=== PATIENT | male | born 1975 | race American Indian/Alaskan Native ===

== ENCOUNTER 2020-06-26 09:08 | Emergency (ER) | payer SELFPAY ==
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
[2020-06-26 10:08] LABS: Bilirubin,Urine NEG (Negative); Blood,Urine NEG (Negative); Color,Urine Yellow (Yellow); Mucus,Urine FEW /HPF
[2020-06-26 10:14] LABS: Basophils # (Auto) 0.1 K/mm3 (0.0-0.1); Basophils % (Auto) 0.9 % (0.0-1.8); Eosinophils # (Auto) 0.1 K/mm3 (0.0-0.4); Eosinophils % (Auto) 0.8 % (0.0-4.3); Lymphocytes # (Auto) 2.5 K/mm3 (1.2-5.4); Lymphocytes % (Auto) 28.8 % (13.4-35.0); Mean Corpuscular HGB Conc 36 % (32-34); Mean Corpuscular Volume 93 fl (84-94); Monocytes # (Auto) 1.1 K/mm3 (0.0-0.8); Platelet Count 209 K/mm3 (140-440); Red Blood Count 4.47 M/mm3 (3.65-5.03); Red Cell Distribution Width 14.2 % (13.2-15.2)
[2020-06-26 10:16] LABS: Hematocrit 41.7 % (35.5-45.6)
[2020-06-26 10:31] LABS: BUN/Creatinine Ratio 26; Blood Urea Nitrogen 26 mg/dL (9-20); Calcium 8.6 mg/dL (8.4-10.2); Hemolysis Index 5
[2020-06-26 10:37] LABS: Amphetamine Screen,Urine PRESUMPTIVE POSITIVE; Benzodiazepines Screen,Urine PRESUMPTIVE NEGATIVE; Cannabinoid Screen,Urine PRESUMPTIVE NEGATIVE; Cocaine Screen,Urine PRESUMPTIVE NEGATIVE; Methadone Screen,Urine PRESUMPTIVE NEGATIVE; Opiate Screen,Urine PRESUMPTIVE NEGATIVE
[2020-06-26] MEDS ORDERED: ZIPRASIDONE MESYLATE 20 MG VIAL IM ONE (13:58)
[2020-06-26] MEDS ORDERED: WATER FOR INJ Sterile (PF) 10 ML ONE (14:13)
--- NOTE | 2020-06-27 10:50 | Consultation ---
History of Present Illness - Reason for Consult Consult date: 06/27/20 Reason for consult: psychosis - History of Present Psychiatric Illness Vianney Griffith is a 45y/o male patient who presented to the ER for psychosis. During my interview with the patient today he is quite paranoid and suspicious. He is looking around as he speaks. He is having flight of ideas and delusional. The patient says "I need a safe place to be from outside harm and other people around me." He says "but really I'm being used and it's a set up." He then says "I need to speak to the investigators." He says "I'm being setup to look like a bad person." The patient then starts talking about the economy. He says "everything that is happening is affecting the economy." He says "but I'm not a threat to the economy." He denies hallucinations, stating "this is real. I don't have hallucinations. All this is real." He denies SI/HI or every having any attempt. The patient states he uses "meth."' He says "but that has nothing to do with it." He says he has a history of "bipolar" and has had ""two past psych admits." The patient denies any medications at this time. PAST PSYCHIATRIC HISTORY Diagnoses: Bipolar Suicide attempts or Self-harm behavior: Denies Prior psychiatric hospitalizations: twice Substance Abuse history: Meth Previous psychiatric medications tried: unable to recall Outpatient treatment: Denies PAST MEDICAL HISTORY: None reported Family Psychiatric History: None reported or documented SOCIAL HISTORY Marital Status: Single Living Arrangements: with friends Employment Status: Disabled Access to guns/weapons: None reported Education: High school History of Abuse: None reported Legal History: None reported REVIEW OF SYSTEMS Constitutional: Negative for weight loss ENT: Negative for stridor Respiratory: Negative for cough or hemoptysis All other systems reviewed and are negative MENTAL STATUS EXAMINATION General Appearance and Behavior: Age appropriate, good hygiene, wearing appropriate clothes, good eye contact Cooperation: Participating/engaged, but Guarded Psychomotor Behavior: Psychomotor normal Mood: "not good" Affect and affective range: Congruent with stated mood Thought Process: illogical, flight of ideas Thought Content: delusions, paranoia Speech: Normal rate, volume and rhythm, herperverbal Intellectual Functioning: Average Suicidal Ideation: Denies Homicidal Ideation: Denies Impulse Control: Impaired Insight and Judgment: Limited insight and judgment Memory: Normal Attention: Normal Orientation: Alert, oriented Assessment and Plan (1)Methamphetamine Use Disorder Current Visit: Yes Status: Acute (2) Substance Induced Mood Disorder Current Visit: Yes Status: Acute (3) Bipolar Disorder Current Visit: Yes Status: Acute Treatment Plan Start Depakote DR 125mg po BID Start Risperidone 0.25mg po BID Start Trazodone 50mg po qhs Start Vistaril 25mg po BID Risks, benefits and alternatives of medications discussed with the patient, ques tions answered and consent obtained from patient. PSYCHOTHERAPY: Supportive psychotherapy provided MEDICAL: Per primary team DELIRIUM PRECAUTIONS: Please re-orient patient frequently, keep lights on during the day, and minimize benzodiazepines and opiates as these medications could worsen patient's confusion. SAW STRAIGHTENER: Defer to primary DISPOSITION: Recommend acute inpatient psychiatric hospitalization at this time LEGAL STATUS: 1013 FOLLOW-UP: Will follow Thank you for the consult. Please contact with any questions and/or concerns. Medications and Allergies Allergies Allergy/AdvReac Type Severity Reaction Status Date / Time No Known Allergies Allergy Unverified 10/30/15 10:11 Mental Status Exam - Vital signs Last Vital Signs Temp 98.0 F 06/27/20 08:26 Pulse 80 06/27/20 08:26 Resp 20 06/27/20 08:26 BP 135/78 06/27/20 08:26 Pulse Ox 96 06/27/20 08:26 Results Result Diagrams: 06/26/20 09:56 06/26/20 09:56 All other labs normal.
[2020-06-27] MEDS: hydrOXYzine PAMOATE 25 MG CAP PO SCH ×2 (11:59→21:57)
[2020-06-27] MEDS: risperiDONE 0.25 MG TAB PO SCH ×2 (11:59→21:57)
[2020-06-27] MEDS: DIVALPROEX DR 125 MG TAB PO SCH ×2 (11:59→21:57)
[2020-06-27] MEDS: traZODone 50 MG TAB PO SCH (21:57)
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
[2020-06-28] MEDS: risperiDONE 0.25 MG TAB PO SCH ×2 (12:40→22:41)
[2020-06-28] MEDS: hydrOXYzine PAMOATE 25 MG CAP PO SCH ×2 (12:40→22:41)
[2020-06-28] MEDS: DIVALPROEX DR 125 MG TAB PO SCH ×2 (12:40→22:42)
[2020-06-28] MEDS: traZODone 50 MG TAB PO SCH (22:42)
--- NOTE | 2020-06-29 10:31 | Progress Note ---
Subjective - Reason for Consult Consult date: 06/29/20 Reason for consult: paranoid - Chief Complaint Chief complaint: During my interview with the patient today, he is talkative. He is a/o x 3. The patient says he "doesn't feel safe." He says "I'm going to be hunted down like an animal out there." When asked about SI/HI, the patient states, "no, I'm not a threat to myself or any one, it's those people in the [place] [employer] who are going to hurt me." He says, "I'm just not safe from them and no one here seems to listen. I feel scared." The patient denies hallucinations. REVIEW OF SYSTEMS Constitutional: Negative for weight loss ENT: Negative for stridor Respiratory: Negative for cough or hemoptysis All other systems reviewed and are negative MENTAL STATUS EXAMINATION General Appearance and Behavior: Age appropriate, good hygiene, wearing appropriate clothes, good eye contact Cooperation: Participating/engaged, but Guarded Psychomotor Behavior: Psychomotor normal Mood: "scared" Affect and affective range: Congruent with stated mood Thought Process: illogical, flight of ideas Thought Content: delusions, paranoia Speech: Normal rate, volume and rhythm, hyperverbal Suicidal Ideation: Denies Homicidal Ideation: Denies Hallucinations: Denies Delusions: Yes, paranoia Impulse Control: Impaired Insight and Judgment: Limited insight and judgment Memory: Normal Attention: Limited Orientation: Alert, oriented Assessment and Plan (1)Methamphetamine Use Disorder Current Visit: Yes Status: Acute (2) Substance Induced Mood Disorder Current Visit: Yes Status: Acute (3) Bipolar Disorder Current Visit: Yes Status: Acute Treatment Plan Increased Depakote DR 250mg po BID Increased Risperidone 0.5mg po BID Risks, benefits and alternatives of medications discussed with the patient, questions answered and consent obtained from patient. PSYCHOTHERAPY: Supportive psychotherapy provided MEDICAL: Per primary team DELIRIUM PRECAUTIONS: Please re-orient patient frequently, keep lights on during the day, and minimize benzodiazepines and opiates as these medications could worsen patient's confusion. PURCHASING ADMINISTRATOR: Defer to primary DISPOSITION: Recommend acute inpatient psychiatric hospitalization at this time LEGAL STATUS: 1013 FOLLOW-UP: Will follow Thank you for the consult. Please contact with any questions and/or concerns. Mental Status Exam - Vital signs Last Vital Signs Temp 97.7 F 06/29/20 10:11 Pulse 78 06/29/20 10:11 Resp 19 06/29/20 10:11 BP 111/67 06/29/20 10:11 Pulse Ox 99 06/29/20 10:11
[2020-06-29] MEDS: DIVALPROEX DR 125 MG TAB PO SCH (12:57)
[2020-06-29] MEDS: hydrOXYzine PAMOATE 25 MG CAP PO SCH ×2 (12:58→22:35)
[2020-06-29] MEDS: risperiDONE 0.25 MG TAB PO SCH ×2 (12:58→22:35)
[2020-06-29] MEDS: traZODone 50 MG TAB PO SCH (22:35)
[2020-06-29] MEDS: DIVALPROEX DR 250 MG TAB PO SCH (22:35)
[2020-06-30 09:16] VITALS: BP 112/73
[2020-06-30] MEDS: DIVALPROEX DR 250 MG TAB PO SCH (10:21)
[2020-06-30] MEDS: hydrOXYzine PAMOATE 25 MG CAP PO SCH (10:21)
[2020-06-30] MEDS: risperiDONE 0.25 MG TAB PO SCH (10:21)
--- NOTE | 2020-06-30 10:24 | Progress Note ---
Subjective - Reason for Consult Consult date: 06/30/20 Reason for consult: paranoia - Chief Complaint Chief complaint: During my interview with the patient today, the patient is much more calm. He is a/o x 3. He is lucid. The patient says he feels much better and states [facility] feels [facility] The patient denies SI/HI or hallucinations of any kind. He also denies feeling paranoid or any fear of endangerment. The patient says he can have his mom to pick him up. REVIEW OF SYSTEMS Constitutional: Negative for weight loss ENT: Negative for stridor Respiratory: Negative for cough or hemoptysis All other systems reviewed and are negative MENTAL STATUS EXAMINATION General Appearance and Behavior: Age appropriate, good hygiene, wearing appropriate clothes, good eye contact Cooperation: Participating/engaged, but Guarded Psychomotor Behavior: Psychomotor normal Mood: "much better" Affect and affective range: Congruent with stated mood Thought Process: goal directed Thought Content: none Speech: Normal rate, volume and rhythm Suicidal Ideation: Denies Homicidal Ideation: Denies Hallucinations: Denies Delusions: None elicited Impulse Control: Impaired Insight and Judgment: Limited insight and judgment Memory: Normal Attention: Limited Orientation: Alert, oriented Assessment and Plan (1)Methamphetamine Use Disorder Current Visit: Yes Status: Acute (2) Substance Induced Mood Disorder Current Visit: Yes Status: Acute (3) Bipolar Disorder Current Visit: Yes Status: Acute Treatment Plan d/c 1013 Trazodone 50mg po qhs Vistaril 25mg po BID prn anxiety Depakote DR 250mg po BID Risperidone 0.5mg po BID Risks, benefits and alternatives of medications discussed with the patient, questions answered and consent obtained from patient. PSYCHOTHERAPY: Supportive psychotherapy provided MEDICAL: Per primary team DELIRIUM PRECAUTIONS: Please re-orient patient frequently, keep lights on during the day, and minimize benzodiazepines and opiates as these medications could worsen patient's confusion. MOTORCYCLE REPAIR SHOP SUPERVISOR: Defer to primary DISPOSITION: Do not Recommend acute inpatient psychiatric hospitalization at this time. The patient understands that if feelings of endangerment are to return he is to seek immediate assistance including but not limited to the crisis hotline, 911, ER. The multi skilled operator to further discuss the safety plan, and give outpatient resources for drug rehab, cog-beh therapy and psych services. The patient to abstain from all illegal drug use He is to follow up with outpatient psych in 7 to 14 days upon discharge. Will sign off. Thank you for the consult. Please contact with any questions and/or concerns. Mental Status Exam - Vital signs Last Vital Signs Temp 97.8 F 06/30/20 09:15 Pulse 90 06/30/20 09:15 Resp 20 06/30/20 09:15 BP 112/73 06/30/20 09:15 Pulse Ox 96 06/30/20 09:15
== END 2020-06-30 13:23 | disposition home or self-care (01) ==
LOC: ED 09:08 → EEVIPCON 09:08 → ED 06-30 13:23
DX: F29 Unspecified psychosis not due to a substance or known physiological condition (principal); F31.9 Bipolar disorder, unspecified; F17.200 Nicotine dependence, unspecified, uncomplicated; Z21 Asymptomatic human immunodeficiency virus [HIV] infection status; Z79.899 Other long term (current) drug therapy
CPT/HCPCS: 36415; 80048; 80307; 81001; 85025; 96372; 99284; J3486; Q0177; 80320; G0480